=== PATIENT | female | born 1985 | race Caucasian/White ===

== ENCOUNTER 2017-06-18 20:19 | Emergency (ER) | payer OTHER | END 2017-06-18 21:41 | disposition home or self-care (01) | LOC: E/R 20:19 | DX: S62.324A Displaced fracture of shaft of fourth metacarpal bone, right hand, initial encounter for closed fracture (principal); S63.501A Unspecified sprain of right wrist, initial encounter; V23.4XXA Motorcycle driver injured in collision with car, pick-up truck or van in traffic accident, initial encounter | CPT/HCPCS: 29125; 73110-RT; 73130-RT; 99283-25 ==

== ENCOUNTER 2017-06-23 18:14 | Emergency (ER) | payer OTHER ==
[2017-06-23] MEDS: IBUPROFEN 600 MG TAB PO (19:27)
== END 2017-06-23 22:00 | disposition home or self-care (01) ==
LOC: FTE 22:00
DX: S60.221A Contusion of right hand, initial encounter (principal); X58.XXXA Exposure to other specified factors, initial encounter; Y92.9 Unspecified place or not applicable
CPT/HCPCS: 29125; 99282-25